=== PATIENT | female | born 1970 | race Caucasian/White ===

== ENCOUNTER → 2022-10-02 | Outpatient (CLI) | payer OTHER | LOC: M PAIN 08:00 | PROVIDERS: ATTEND Nurse Practitioner Family | DX: M50.10 Cervical disc disorder with radiculopathy, unspecified cervical region (principal); J45.909 Unspecified asthma, uncomplicated; M77.8 Other enthesopathies, not elsewhere classified; M25.511 Pain in right shoulder; E66.01 Morbid (severe) obesity due to excess calories; Z68.43 Body mass index [BMI] 50.0-59.9, adult; Z79.899 Other long term (current) drug therapy; Z98.84 Bariatric surgery status; Z88.2 Allergy status to sulfonamides; Z88.5 Allergy status to narcotic agent; Z91.040 Latex allergy status; Z91.048 Other nonmedicinal substance allergy status ==

== ENCOUNTER → 2022-10-30 | Outpatient (CLI) | payer OTHER ==
[~2022-10-30] MED LIST: ISOVUE-M 300 61% 15ML VIAL As Ordered ONE; LIDOCAINE 1% SDV 30ML VIAL As Ordered ONE; NORCO, ANEXSIA 5/325MG TABLET (HYDROcodone/ACETAMINOPHEN) As Ordered ONE; diazePAM 5MG TABLET As Ordered ONE; methylPREDNISolone SUSP 40MG/ML 1ML VIAL (DEPO MEDROL) As Ordered ONE
== END ==
LOC: M PAIN 14:30
PROVIDERS: ATTEND Anesthesiology
DX: M50.10 Cervical disc disorder with radiculopathy, unspecified cervical region (principal); G89.29 Other chronic pain; J45.909 Unspecified asthma, uncomplicated; I10 Essential (primary) hypertension; Z98.84 Bariatric surgery status; Z88.2 Allergy status to sulfonamides; Z88.5 Allergy status to narcotic agent; Z91.040 Latex allergy status; Z91.09 Other allergy status, other than to drugs and biological substances; E66.01 Morbid (severe) obesity due to excess calories; Z68.43 Body mass index [BMI] 50.0-59.9, adult; Z79.899 Other long term (current) drug therapy
CPT/HCPCS: 62321; J1030

== ENCOUNTER → 2022-11-13 | Outpatient (CLI) | payer OTHER | LOC: M PAIN 14:30 | PROVIDERS: ATTEND Anesthesiology | DX: G89.29 Other chronic pain (principal); M50.10 Cervical disc disorder with radiculopathy, unspecified cervical region; J45.909 Unspecified asthma, uncomplicated; E66.01 Morbid (severe) obesity due to excess calories; I10 Essential (primary) hypertension; Z79.899 Other long term (current) drug therapy; Z88.5 Allergy status to narcotic agent; Z88.2 Allergy status to sulfonamides; Z91.040 Latex allergy status; Z91.048 Other nonmedicinal substance allergy status ==

== ENCOUNTER → 2024-01-14 | Outpatient (REF) | LOC: M PLAIMG 10:38 | PROVIDERS: ATTEND Internal Medicine | DX: R52 Pain, unspecified (principal) ==

== ENCOUNTER 2024-05-23 07:42 | Emergency (ER) | payer OTHER ==
[~2024-05-23] VITALS: Ht 162.6 cm; Wt 119.7 kg
[2024-05-23 07:43] VITALS: BP 143/67; TEMP 97.6; O2SAT 98
[2024-05-23] MEDS ORDERED: LOSA50TA28 (07:49)
[2024-05-23] MEDS ORDERED: HYDR-3713 (07:49)
== END 2024-05-23 09:06 | disposition left against medical advice (07) ==
LOC: M ED 07:42
DX: Z53.21 Procedure and treatment not carried out due to patient leaving prior to being seen by health care provider (principal)

== ENCOUNTER → 2024-06-22 | Outpatient (REF) | payer OTHER ==
[~2024-06-22] MED LIST changes: +HYDR-3713; -ISOVUE-M 300 61% 15ML VIAL As Ordered ONE; -LIDOCAINE 1% SDV 30ML VIAL As Ordered ONE; +LOSA50TA28; -NORCO, ANEXSIA 5/325MG TABLET (HYDROcodone/ACETAMINOPHEN) As Ordered ONE; -diazePAM 5MG TABLET As Ordered ONE; -methylPREDNISolone SUSP 40MG/ML 1ML VIAL (DEPO MEDROL) As Ordered ONE
== END ==
LOC: M LAB REF 16:29
PROVIDERS: ATTEND Student in an Organized Health Care Education/Training Program
DX: R30.0 Dysuria (principal)

== ENCOUNTER → 2024-08-05 | Outpatient (CLI) | payer OTHER | LOC: M SOG 13:39 | PROVIDERS: ATTEND Orthopaedic Surgery | DX: M25.511 Pain in right shoulder (principal) ==

== ENCOUNTER 2024-09-15 07:00 | Outpatient (RCR) | payer OTHER | END 2024-09-22 | LOC: M PT 07:00 | PROVIDERS: ATTEND Orthopaedic Surgery | DX: M25.511 Pain in right shoulder (principal); M25.512 Pain in left shoulder ==

== ENCOUNTER 2024-10-12 18:14 | Emergency (ER) | payer OTHER ==
[~2024-10-12] VITALS: Ht 162.6 cm; Wt 113.6 kg
[2024-10-12 18:16] VITALS: BP 140/77; TEMP 97.4; O2SAT 98
[2024-10-12] MEDS ORDERED: OSEL75CA PO (19:47)
[2024-10-12] MEDS: OSELTAMIVIR PHOSPHATE 75 MG CAP (TAMIFLU) PO ONE (20:09)
== END 2024-10-12 20:10 | disposition home or self-care (01) ==
LOC: M ED 18:14
DX: J09.X2 Influenza due to identified novel influenza A virus with other respiratory manifestations (principal); R06.2 Wheezing; I10 Essential (primary) hypertension; J44.9 Chronic obstructive pulmonary disease, unspecified; Z82.49 Family history of ischemic heart disease and other diseases of the circulatory system; Z88.2 Allergy status to sulfonamides; Z88.5 Allergy status to narcotic agent; Z79.1 Long term (current) use of non-steroidal anti-inflammatories (NSAID); Z79.899 Other long term (current) drug therapy

== ENCOUNTER → 2024-11-23 | Outpatient (CLI) | payer OTHER ==
[~2024-11-23] MED LIST changes: +OSEL75CA PO
== END ==
LOC: M PLAIMG 09:49
PROVIDERS: ATTEND Orthopaedic Surgery
DX: M75.31 Calcific tendinitis of right shoulder (principal)

== ENCOUNTER → 2025-06-01 | Outpatient (CLI) | payer MEDICARE, OTHER | LOC: M WUC 14:34 | PROVIDERS: ATTEND Physician Assistant | DX: M79.645 Pain in left finger(s) (principal) ==

== ENCOUNTER 2025-07-25 09:32 | Observation (INO) | payer MEDICARE, OTHER ==
[~2025-07-25] VITALS: Ht 162.6 cm; Wt 117.4 kg
[~2025-07-25 09:32] MED LIST changes: -LOSA50TA28; +LOSA50TA28 PO
[2025-07-25] MEDS ORDERED: PIME1CRE TOP (09:49)
[2025-07-25] MEDS ORDERED: ALBU8.5H INH (09:49)
[2025-07-25] MEDS ORDERED: ALBU0.63 INH (09:49)
[2025-07-25] MEDS: NS (Normal Saline) 0.9% 1,000 ML IV ONE (13:05)
[2025-07-25 13:06] LABS: BASO # 0.1 10^3/uL (0.0-0.2); BASO % 1.3 % (0.0-1.0); EOS # 0.3 10^3/uL (0.0-0.5); EOS % 3.3 % (0.0-3.0); LYMPH # 2.0 10^3/uL (1.5-5.0); LYMPH % 24.0 % (24.0-44.0); MONO # 0.7 10^3/uL (0.0-0.8); MONO % 8.5 % (2.0-8.0); NEUTROPHILS # 5.3 10^3/uL (1.5-8.5); NEUTROPHILS % 62.7 % (36.0-66.0); PLATELET COUNT, AUTOMATED 284 10^3/uL (150-450)
[2025-07-25 13:33] LABS: CALCIUM LEVEL 8.6 MG/DL (8.5-10.1); CARBON DIOXIDE LEVEL 28 MMOL/L (20-31); CHLORIDE LEVEL 104 MMOL/L (98-107); CK-MB VALUE MASS < 1.0 NG/ML (<3.6); CREATININE FOR GFR 0.74 MG/DL (0.55-1.30); GLOMERULAR FILTRATION RATE > 90.0 (>51); MAGNESIUM LEVEL 1.9 MG/DL (1.8-2.4); POTASSIUM SERUM 4.0 MMOL/L (3.5-5.1); SODIUM LEVEL 141 MMOL/L (136-145)
[2025-07-25 13:35] LABS: FREE T4 1.16 NG/DL (0.89-1.76)
[2025-07-25 13:36] LABS: CPK CREATINE PHOSPHOKINASE 63 U/L (34-145)
[2025-07-25] MEDS ORDERED: ACETAMINOPHEN 325 MG TAB PO PRN (14:50)
[2025-07-25] MEDS ORDERED: MOM 30 ML SUSPENSION UDC PO PRN (14:50)
[2025-07-25] MEDS ORDERED: MAALOX 30 ML SUSP *UDC PO PRN (14:50)
[2025-07-25 15:32] VITALS: BP 149/69; TEMP 97; O2SAT 100
[2025-07-25] MEDS: NS (Normal Saline) 0.9% 1,000 ML IV SCH (15:45)
[2025-07-25] MEDS ORDERED: ACET-839 PO (16:16)
[2025-07-25] MEDS ORDERED: HOME MED LIST COMPLETE! XX SCH (16:20)
[2025-07-25 16:40] LABS: INR 0.96
[2025-07-25 20:03] VITALS: BP 102/50; TEMP 97.1; O2SAT 96
[2025-07-25] MEDS: DOCUSATE SODIUM 100 MG CAPSULE PO SCH (20:37)
[2025-07-26 00:06] VITALS: BP 86/51; TEMP 97.4; O2SAT 96
[2025-07-26 00:24] VITALS: BP 108/72
[2025-07-26 04:32] VITALS: BP 120/66; TEMP 97.8; O2SAT 94
[2025-07-26 05:49] LABS: BASO # 0.1 10^3/uL (0.0-0.2); BASO % 1.2 % (0.0-1.0); EOS # 0.3 10^3/uL (0.0-0.5); EOS % 4.5 % (0.0-3.0); LYMPH # 1.8 10^3/uL (1.5-5.0); LYMPH % 24.3 % (24.0-44.0); MONO # 0.7 10^3/uL (0.0-0.8); MONO % 9.0 % (2.0-8.0); NEUTROPHILS # 4.5 10^3/uL (1.5-8.5); NEUTROPHILS % 60.6 % (36.0-66.0); PLATELET COUNT, AUTOMATED 257 10^3/uL (150-450)
[2025-07-26 06:15] LABS: CALCIUM LEVEL 8.1 MG/DL (8.5-10.1); CARBON DIOXIDE LEVEL 26 MMOL/L (20-31); CHLORIDE LEVEL 109 MMOL/L (98-107); CREATININE FOR GFR 0.57 MG/DL (0.55-1.30); GLOMERULAR FILTRATION RATE > 90.0 (>51); MAGNESIUM LEVEL 1.8 MG/DL (1.8-2.4); POTASSIUM SERUM 3.8 MMOL/L (3.5-5.1); SODIUM LEVEL 146 MMOL/L (136-145)
[2025-07-26 08:08] VITALS: BP 144/66; TEMP 97.5; O2SAT 96
[2025-07-26] MEDS ORDERED: ALBUTEROL 90 MCG/ACT 8 GM HFA INHALER INH PRN (08:20)
[2025-07-26] MEDS ORDERED: ALBUTEROL SULFATE 2.5 MG/0.5 ML INH CONCENTRATE NEB SOLN INH PRN (08:20)
[2025-07-26 08:57] VITALS: BP 144/66
[2025-07-26] MEDS: LOSARTAN 25 MG TAB PO SCH (08:57)
[2025-07-26] MEDS: ENOXAPARIN 40 MG/0.4 ML SYRINGE (J1650 PER 10MG) SC SCH (08:57)
[2025-07-26 11:59] VITALS: BP 127/58; TEMP 97.6; O2SAT 98
[2025-07-26] MEDS ORDERED: LOSA-527 PO (14:44)
[2025-07-29 20:14] LABS: LYME TOTAL ANTIBODY CIA <= 0.90 Index (<=0.90)
[2025-07-31 10:07] LABS: BORRELIA SPECIES DNA NOT DETECTED (NOT DETECT)
== END 2025-07-26 17:28 | disposition home or self-care (01) ==
LOC: M ED 09:32 → M ED INP 14:50 → M PCU 15:30
PROVIDERS: ADMIT Internal Medicine; ATTEND Internal Medicine
DX: R00.1 Bradycardia, unspecified (principal); I95.1 Orthostatic hypotension; R42 Dizziness and giddiness; I10 Essential (primary) hypertension; J45.909 Unspecified asthma, uncomplicated; E66.01 Morbid (severe) obesity due to excess calories; Z68.41 Body mass index [BMI] 40.0-44.9, adult; M54.2 Cervicalgia; M54.6 Pain in thoracic spine; M79.621 Pain in right upper arm; G89.29 Other chronic pain; L08.9 Local infection of the skin and subcutaneous tissue, unspecified; Z90.89 Acquired absence of other organs; Z90.49 Acquired absence of other specified parts of digestive tract; Z98.891 History of uterine scar from previous surgery; Z90.79 Acquired absence of other genital organ(s); Z98.84 Bariatric surgery status; Z88.2 Allergy status to sulfonamides; Z88.5 Allergy status to narcotic agent; Z88.8 Allergy status to other drugs, medicaments and biological substances; Z91.040 Latex allergy status; Z79.899 Other long term (current) drug therapy
CPT/HCPCS: 36415; 70450; 70551; 71045; 80048; 82550; 82553; 83735; 84145; 84439; 84443; 84484; 85025; 85610; 85730; 86618; 87040; 87468; 87469; 87478; 87484; 87801; 93005; 93041; 93306; 94760; 96360; 96361; 96372; 97116; 97161; 99285; G0378; J1650

== ENCOUNTER → 2025-07-26 | Outpatient (CLI) | payer MEDICARE ==
[~2025-07-26] MED LIST changes: +ACET-839 PO; +ALBU0.63 INH; +ALBU8.5H INH; +LEVO75TAB PO; +LIDO1PAD TD; +LOSA-527 PO; +LOSA25TA13 PO; +PIME1CRE TOP
== END ==
LOC: M EKG 17:31
PROVIDERS: ATTEND Internal Medicine
DX: R00.1 Bradycardia, unspecified (principal)

== ENCOUNTER 2025-08-14 16:34 | Inpatient (IN) | payer MEDICARE ==
[~2025-08-14] VITALS: Ht 162.6 cm; Wt 113.6 kg
[~2025-08-14 16:34] MED LIST changes: -LEVO75TAB PO; -LIDO1PAD TD; -LOSA25TA13 PO
[2025-08-14 16:58] LABS: KETONE, URINE AUTO RFX NEGATIVE (NEGATIVE); NITRITE, URINE AUTO RFX NEGATIVE (NEGATIVE); RBC, URINE AUTO RFX 8 /HPF (0-3); SQUAM EPITHELIAL CELL UR AURFX 1 /HPF (0-6)
[2025-08-14 16:59] LABS: LEUKOCYTE ESTERASE UR AUTO RFX 1+ (NEGATIVE); WBC, URINE AUTO RFX 40 /HPF (0-3)
[2025-08-14 17:52] LABS: BASO # 0.1 10^3/uL (0.0-0.2); BASO % 0.5 % (0.0-1.0); EOS # 0.0 10^3/uL (0.0-0.5); EOS % 0.2 % (0.0-3.0); LYMPH # 1.0 10^3/uL (1.5-5.0); LYMPH % 7.6 % (24.0-44.0); MONO # 0.8 10^3/uL (0.0-0.8); MONO % 6.5 % (2.0-8.0); NEUTROPHILS # 10.8 10^3/uL (1.5-8.5); NEUTROPHILS % 84.9 % (36.0-66.0); PLATELET COUNT, AUTOMATED 252 10^3/uL (150-450)
[2025-08-14 18:16] LABS: ALT/SGPT 24.0 U/L (7.0-40); AST/SGOT 25.0 U/L (<34); C REACTIVE PROTEIN QUANTITATIV 5.65 MG/DL (<1.0); CALCIUM LEVEL 8.6 MG/DL (8.5-10.1); CARBON DIOXIDE LEVEL 28.0 MMOL/L (20-31); CHLORIDE LEVEL 100.0 MMOL/L (98-107); CREATININE FOR GFR 0.78 MG/DL (0.55-1.30); GLOMERULAR FILTRATION RATE 89.1 (>51); POTASSIUM SERUM 4.1 MMOL/L (3.5-5.1); SODIUM LEVEL 138.0 MMOL/L (136-145)
[2025-08-14 18:23] LABS: INR 0.94
[2025-08-14] MEDS ORDERED: ISOVUE-370 76% 100 ML VIAL As Ordered ONE (19:07)
[2025-08-14] MEDS: NS (Normal Saline) 0.9% 1,000 ML IV ONE (19:23)
[2025-08-14] MEDS: KETOROLAC 30 MG/ML 1 ML VIAL IV ONE (19:23)
[2025-08-14] MEDS: cefTRIAXone SOD 1 GM in DEXTROSE 5% (D5W) ADV/MINI-BAG 50 ML IV ONE (21:02)
[2025-08-14] MEDS ORDERED: ALBUTEROL 90 MCG/ACT 8 GM HFA INHALER INH PRN (21:50)
[2025-08-14 23:15] VITALS: BP 126/77; TEMP 98.2; O2SAT 97
[2025-08-15] MEDS: PANTOPRAZOLE 40MG TAB PO SCH (00:08)
[2025-08-15] MEDS ORDERED: LOSA25TA13 PO (00:19)
[2025-08-15] MEDS ORDERED: LIDO1PAD TD (00:19)
[2025-08-15] MEDS ORDERED: HOME MED LIST COMPLETE! XX SCH (00:20)
[2025-08-15] MEDS: KETOROLAC 30 MG/ML 1 ML VIAL IV PRN (05:19)
[2025-08-15 06:00] VITALS: BP 125/65; TEMP 98.9; O2SAT 99
[2025-08-15 07:00] LABS: BASO # 0.1 10^3/uL (0.0-0.2); BASO % 0.6 % (0.0-1.0); EOS # 0.1 10^3/uL (0.0-0.5); EOS % 0.9 % (0.0-3.0); LYMPH # 1.1 10^3/uL (1.5-5.0); LYMPH % 10.7 % (24.0-44.0); MONO # 1.5 10^3/uL (0.0-0.8); MONO % 14.1 % (2.0-8.0); NEUTROPHILS # 7.6 10^3/uL (1.5-8.5); NEUTROPHILS % 73.4 % (36.0-66.0); PLATELET COUNT, AUTOMATED 226 10^3/uL (150-450)
[2025-08-15 07:31] LABS: CALCIUM LEVEL 7.9 MG/DL (8.5-10.1); CARBON DIOXIDE LEVEL 25 MMOL/L (20-31); CHLORIDE LEVEL 106 MMOL/L (98-107); CREATININE FOR GFR 0.68 MG/DL (0.55-1.30); GLOMERULAR FILTRATION RATE > 90.0 (>51); POTASSIUM SERUM 3.6 MMOL/L (3.5-5.1); SODIUM LEVEL 141 MMOL/L (136-145)
[2025-08-15] MEDS: HEPARIN SOD 5000 UNITS/ML 1 ML VIAL/SYRINGE SC SCH (08:05)
[2025-08-15] MEDS: ACETAMINOPHEN 325 MG TAB PO PRN (08:06)
[2025-08-15] MEDS ORDERED: ACETAMINOPHEN 500 MG TAB PO PRN (10:10)
[2025-08-15] MEDS ORDERED: ALBUTEROL 90 MCG/ACT 8 GM HFA INHALER INH PRN (10:10)
[2025-08-15] MEDS ORDERED: ALBUTEROL SULFATE 2.5 MG/0.5 ML INH CONCENTRATE NEB SOLN INH PRN (10:10)
[2025-08-15] MEDS ORDERED: LIDOCAINE 5% PATCH TD PRN (10:10)
[2025-08-15] MEDS: PNEUMOC 21-VAL CONJ-DIP CRM/PF 0.5 ML SYRINGE IM.IMMUN ONE (12:20)
[2025-08-15] MEDS: cefTRIAXone SOD 1 GM in DEXTROSE 5% (D5W) ADV/MINI-BAG 50 ML IV SCH (12:29)
[2025-08-15 14:00] VITALS: BP 122/74; TEMP 98.7; O2SAT 98
[2025-08-15 19:23] VITALS: BP 118/56; TEMP 98.2; O2SAT 100
[2025-08-15 20:10] VITALS: BP 118/56
[2025-08-15] MEDS: LOSARTAN 25 MG TAB PO SCH (20:10)
[2025-08-16 06:00] VITALS: BP 96/51; TEMP 97.5; O2SAT 97
[2025-08-16 06:54] LABS: BASO # 0.1 10^3/uL (0.0-0.2); BASO % 0.8 % (0.0-1.0); EOS # 0.2 10^3/uL (0.0-0.5); EOS % 2.6 % (0.0-3.0); LYMPH # 1.6 10^3/uL (1.5-5.0); LYMPH % 20.6 % (24.0-44.0); MONO # 1.4 10^3/uL (0.0-0.8); MONO % 17.1 % (2.0-8.0); NEUTROPHILS # 4.7 10^3/uL (1.5-8.5); NEUTROPHILS % 58.6 % (36.0-66.0); PLATELET COUNT, AUTOMATED 226 10^3/uL (150-450)
[2025-08-16 07:15] LABS: CALCIUM LEVEL 7.8 MG/DL (8.5-10.1); CARBON DIOXIDE LEVEL 25 MMOL/L (20-31); CHLORIDE LEVEL 107 MMOL/L (98-107); CREATININE FOR GFR 0.64 MG/DL (0.55-1.30); GLOMERULAR FILTRATION RATE > 90.0 (>51); POTASSIUM SERUM 3.8 MMOL/L (3.5-5.1); SODIUM LEVEL 142 MMOL/L (136-145)
[2025-08-16] MEDS ORDERED: LEVO75TAB PO (10:07)
== END 2025-08-16 12:10 | disposition home or self-care (01) | DRG 690 ==
LOC: M ED 16:34 → M ED INP 21:48 → M MS5PR 23:36
PROVIDERS: ADMIT Internal Medicine Nephrology; ATTEND Internal Medicine
DX: N10 Acute pyelonephritis (principal); Z68.41 Body mass index [BMI] 40.0-44.9, adult; E66.01 Morbid (severe) obesity due to excess calories; I10 Essential (primary) hypertension; J45.909 Unspecified asthma, uncomplicated; M54.2 Cervicalgia; M25.511 Pain in right shoulder; G89.29 Other chronic pain; M54.6 Pain in thoracic spine; M75.81 Other shoulder lesions, right shoulder; B96.20 Unspecified Escherichia coli [E. coli] as the cause of diseases classified elsewhere; Z79.51 Long term (current) use of inhaled steroids; Z79.899 Other long term (current) drug therapy; Z88.2 Allergy status to sulfonamides; Z88.5 Allergy status to narcotic agent; Z88.8 Allergy status to other drugs, medicaments and biological substances; Z91.040 Latex allergy status; Z98.84 Bariatric surgery status; Z90.49 Acquired absence of other specified parts of digestive tract

== ENCOUNTER → 2025-08-30 | Outpatient (CLI) | payer MEDICARE ==
[~2025-08-30] MED LIST changes: +LEVO75TAB PO; +LIDO1PAD TD; +LOSA25TA13 PO
[2025-08-30 08:26] LABS: BASO # 0.1 10^3/uL (0.0-0.2); BASO % 1.4 % (0.0-1.0); EOS # 0.3 10^3/uL (0.0-0.5); EOS % 4.7 % (0.0-3.0); LYMPH # 1.6 10^3/uL (1.5-5.0); LYMPH % 24.8 % (24.0-44.0); MONO # 0.7 10^3/uL (0.0-0.8); MONO % 10.2 % (2.0-8.0); NEUTROPHILS # 3.7 10^3/uL (1.5-8.5); NEUTROPHILS % 58.6 % (36.0-66.0); PLATELET COUNT, AUTOMATED 296 10^3/uL (150-450)
[2025-08-30 08:47] LABS: ESTIMATED AVERAGE GLUCOSE 114.0 MG/DL (60-110)
[2025-08-30 08:59] LABS: CREATININE, URINE 128.6 MG/DL; MALB URINE SIEMENS 4.0 MG/L; MAU/CREAT RATIO 3.1 MCG/MG (0.0-30.0)
[2025-08-30 09:02] LABS: ALT/SGPT 20 U/L (7.0-40); AST/SGOT 20 U/L (<34); CALCIUM LEVEL 8.2 MG/DL (8.5-10.1); CARBON DIOXIDE LEVEL 30 MMOL/L (20-31); CHLORIDE LEVEL 108 MMOL/L (98-107); CHOLESTEROL LEVEL 164 MG/DL (<200); CHOLESTEROL RISK RATIO 3.12 (<5); CREATININE FOR GFR 0.71 MG/DL (0.55-1.30); GLOMERULAR FILTRATION RATE > 90.0 (>51); LDL CHOLESTEROL 96.1 MG/DL (<100); NON-HDL-C 111.5 MG/DL; POTASSIUM SERUM 3.8 MMOL/L (3.5-5.1); SODIUM LEVEL 145 MMOL/L (136-145); TOTAL 25(OH) VITAMIN D 19.9 NG/ML (20.0-100.0); TRIGLYCERIDES LEVEL 77 MG/DL (<150)
[2025-08-30 09:04] LABS: FREE T4 1.19 NG/DL (0.89-1.76); VITAMIN B12 LEVEL 511 PG/ML (211-911)
== END ==
LOC: M LAB 07:41
PROVIDERS: ATTEND Nurse Practitioner Family
DX: I10 Essential (primary) hypertension (principal); E66.01 Morbid (severe) obesity due to excess calories; Z68.42 Body mass index [BMI] 45.0-49.9, adult; E55.9 Vitamin D deficiency, unspecified; E11.9 Type 2 diabetes mellitus without complications; Z13.29 Encounter for screening for other suspected endocrine disorder; Z13.0 Encounter for screening for diseases of the blood and blood-forming organs and certain disorders involving the immune mechanism; Z13.228 Encounter for screening for other metabolic disorders